=== PATIENT | female | born 1965 | race Caucasian/White ===

== ENCOUNTER 2018-12-13 07:33 | Emergency (ER) | payer BC, SELFPAY ==
[2018-12-13 07:48] VITALS: BP 129/87; PULSE 79; RESP 16; TEMP 36.4; O2SAT 97
[2018-12-13 07:56] VITALS: BP 129/87; PULSE 79; RESP 16; TEMP 36.4; O2SAT 97
--- NOTE | 2018-12-13 07:58 | ED_ITS ---
HPI - Female Genitourinary General Chief complaint: Urogenital-Female Stated complaint: urinary track infection thinking its in kidneys Time Seen by Provider: 12/13/18 07:53 Source: patient Mode of arrival: ambulatory Limitations: no limitations History of Present Illness HPI Narrative: Patient is a 53-year-old female who presents with painful frequent urination ongoing for the last 3 days. She said [place] she started taking AZO to help with the painful frequent urination. Last evening she started noticing some right flank pain. He has been taking Tylenol and ibuprofen her last dose was yesterday she denies any fevers or sweats. MD Complaint: UTI Related Data Home Medications Medication Instructions Recorded Confirmed bupropion HCl [Wellbutrin SR] 150 mg PO BID #0 07/29/16 fluoxetine 20 mg PO QDAY #0 07/29/16 Previous Rx's Medication Instructions Recorded acetaminophen-codeine 1 - 2 tab PO Q4HP PRN #30 tab 08/01/16 amoxicillin-pot clavulanate 875 mg PO TID #21 tab 08/01/16 [Augmentin] docusate sodium [Colace] 100 mg PO BID #30 cap 08/01/16 acetaminophen-codeine 1 tab PO Q4HP PRN #14 tab 08/05/16 nitrofurantoin monohyd/m-cryst 100 mg PO BID #10 cap 12/13/18 [Macrobid] nitrofurantoin monohyd/m-cryst 100 mg PO BID #14 cap 12/13/18 [Macrobid] Allergies Allergy/AdvReac Type Severity Reaction Status Date / Time Sulfa (Sulfonamide Allergy Unknown Unverified 07/17/17 11:50 Antibiotics) [SULFA (SULFONAMIDE ANTIBIOTICS)] Review of Systems Review of Systems Narrative: GENERAL: Denies chills,fever HEENT: Denies throat pain RESPIRATORY: Denies dyspnea, cough, wheezing CARDIOVASCULAR: Denies chest pain, palpitations GASTROINTESTINAL: Denies nausea, vomiting : See HPI MUSCULOSKELETAL: Denies extremity pain, injury SKIN: No rash, no laceration, no pruritus NEUROLOGIC: Denies weakness, dizziness, headache, numbness 8 point review of systems is negative except for those stated above and HPI PFSH Medical History Acute appendicitis (Acute) Depression (Acute) Postoperative abdominal pain (Acute) Social History (Updated 12/13/18 @ 08:01 by Dian Oneill DO) Smoking Status: Never smoker alcohol intake: never substance use type: does not use Social History Smoking Status: Never smoker alcohol intake: never substance use type: does not use Exam Initial Vital Signs Initial Vital Signs: Vital Signs Temperature 97.6 F 12/13/18 07:48 Pulse Rate 79 12/13/18 07:48 Respiratory Rate 16 12/13/18 07:48 Blood Pressure 129/87 12/13/18 07:48 Pulse Oximetry 97 12/13/18 07:48 GENERAL: Well-appearing, well-nourished and in no acute distress. HEENT: Head atraumatic,EOMI, pupils reactive, CARDIOVASCULAR: Regular rate and rhythm without murmurs, rubs or gallops. RESPIRATORY: Breath sounds equal bilaterally, no wheezes rales or rhonchi. ABDOMEN: Soft, nontender. Normoactive bowel sounds all 4 quadrants. No guarding or rebound. : Mild right CVA tenderness EXTREMITIES: Normal range of motion, no clubbing or edema. Neurovascularly intact NEUROLOGICAL: Alert and oriented x4.Normal gait and speech. SKIN: Warm, dry, no laceration, no petechiae, no rashes or lesions. Course Orders Ordered: ED Orders 12/13/18 07:50 Urinalysis and Microscopic Stat Urine Culture Stat Vital Signs Vital signs: Vital Signs - 8 hr 12/13/18 07:48 12/13/18 07:56 Temperature 97.6 F 97.6 F Pulse Rate 79 79 Respiratory Rate 16 16 Blood Pressure 129/87 Blood Pressure [Left Arm] 129/87 Pulse Oximetry 97 97 MDM - Female Genitourinary Lab Data Attestation: I reviewed the patient's lab results. Labs: Lab Results 12/13/18 Range/Units 07:50 Urine Color Broad Top Urine Appearance Cloudy Urine pH 8.0 (4.5-8.0) Ur Specific [place] 1.020 (1.000-1.035) Urine Protein 3+ H (Negative) Urine Glucose (UA) Trace H (Negative) g/dL Urine Ketones Negative (NEGATIVE) Urine Occult Blood 3+ H (Negative) Urine Nitrate Positive (Negative) Urine Bilirubin Negative (NEGATIVE) Urine Urobilinogen 1.0 (0.2) E.U./dL Ur Leukocyte Esterase 2+ H (NEGATIVE) Urine RBC 30-100/hpf H (0-5/HPF) Urine WBC 10-30/hpf H (0-5/HPF) Ur Squamous Epith Cells 1-5 /hpf (0-5/HPF) Urine Bacteria Moderate (10-30) H (None) Ur Culture Indicated? Specimen cultured Discharge Plan Departure Patient Disposition: Home Clinical Impression: Urinary tract infection Qualifiers: Urinary tract infection type: acute cystitis Hematuria presence: with hematuria Qualified Code(s): N30.01 - Acute cystitis with hematuria Instructions: DI for Urinary Tract Infection (UTI) Activity Restrictions/Additional Instructions: *You have been diagnosed with UTI *What to do: Increase fluid intake *Continue to take medications as directed Macrobid 100 mg twice a day for 5 days *Follow up with your primary care provider in 2-3 days *Return to ER if you should have fevers sweats increasing right flank pain worsening symptoms inability to tolerate fluids or any new, worsening or concerning symptoms Prescriptions: New nitrofurantoin monohyd/m-cryst [Macrobid] 100 mg capsule 100 mg PO BID Qty: 10 RF: 0 nitrofurantoin monohyd/m-cryst [Macrobid] 100 mg capsule 100 mg PO BID Qty: 14 RF: 0 No Action bupropion HCl [Wellbutrin SR] 150 MG tablet extended release 12 hr 150 mg PO BID Qty: 0 RF: 0 fluoxetine 20 MG capsule 20 mg PO QDAY Qty: 0 RF: 0 acetaminophen-codeine 30 MG/300 MG tablet 1 - 2 tab PO Q4HP PRNQty: 30 RF: 0 docusate sodium [Colace] 100 MG capsule 100 mg PO BID Qty: 30 RF: 1 amoxicillin-pot clavulanate [Augmentin] 875 MG/125 MG tablet 875 mg PO TID Qty: 21 RF: 0 acetaminophen-codeine 30 MG/300 MG tablet 1 tab PO Q4HP PRNQty: 14 RF: 0
[2018-12-13 07:59] LABS: Bilirubin Urine UA NEGATIVE (NEGATIVE); Glucose Urine UA TRACE g/dL (Negative); Ketones Urine UA NEGATIVE (NEGATIVE); Leukocyte Esterase Urine UA 2+ (NEGATIVE); Nitrite Urine UA POSITIVE (Negative); Occult Blood Urine UA 3+ (Negative); Protein Urine UA 3+ (Negative)
[2018-12-13 08:01] LABS: Appearance Urine UA CLOUDY; Color Urine UA ORANGE
[2018-12-13 08:06] LABS: Bacteria Urine Moderate (10-30); Culture Indicated Urine Specimen Cultured; RBC Urine 30-100/HPF (0-5/HPF); Squamous Epithelial Cell Urine 1-5 /HPF (0-5/HPF); WBC Urine 10-30/HPF (0-5/HPF)
== END 2018-12-13 08:15 | disposition home or self-care (01) ==
PROVIDERS: Emergency Provider Emergency Medicine
DX: N30.01 Acute cystitis with hematuria (principal)
CPT/HCPCS: 81001; 87077; 87086; 87186; 99282; 99283